=== PATIENT | male | born 1995 | race Caucasian/White ===

== ENCOUNTER 2023-12-06 22:01 | Emergency (ER) | payer SELFPAY ==
[~2023-12-06] VITALS: Ht 172.7 cm; Wt 77.1 kg
[2023-12-06 22:08] VITALS: BP 142/72; PULSE 120; RESP 20; TEMP 97.8; O2SAT 97
[2023-12-06] MEDS ORDERED: LIDOCAINE 2% 1000 MG/50 ML VIAL INJ ONE (22:30)
[2023-12-06] MEDS ORDERED: BACITRACIN OINT 500 UNITS/GM PKT TP ONE (22:30)
[2023-12-06] MEDS ORDERED: WATER STERILE 0 ML MC ONE (22:38)
[2023-12-06 23:15] VITALS: BP 124/71; PULSE 100; RESP 19; TEMP 36.55848; O2SAT 97
== END 2023-12-06 23:15 ==
LOC: MED 22:01
DX: S01.112A Laceration without foreign body of left eyelid and periocular area, initial encounter (principal); S93.491A Sprain of other ligament of right ankle, initial encounter; V29.888A Rider (driver) (passenger) of other motorcycle injured in other specified transport accidents, initial encounter; Y93.89 Activity, other specified; Y92.89 Other specified places as the place of occurrence of the external cause; Y99.8 Other external cause status
CPT/HCPCS: 12011; 73610; 99283; J2001; Q0092